=== PATIENT | male | born 1990 | race Caucasian/White ===

== ENCOUNTER 2018-01-22 17:21 | Observation (INO) | payer OTHER ==
[2018-01-22] MEDS ORDERED: Colace 100 MG PO PRN (17:47)
[2018-01-22] MEDS ORDERED: Sodium Chloride 0.9% 500 ML 500 ML IV ONE (17:47)
[2018-01-22] MEDS ORDERED: TYLENOL 325 MG PO PRN (17:58)
[2018-01-22] MEDS: LEVOFLOXACIN 750MG/150ML D5W 750 MG/150 ML BAG IV SCH (18:04)
[2018-01-22] MEDS: Dextrose 5% -0.45 NaCl 1000 ML 1,000 ML IV SCH (19:12)
[2018-01-22 19:13] LABS: INR 1.38 (0.8-3.0)
[2018-01-22 19:16] LABS: PTT 33.1 SECONDS (24.1-36.1)
[2018-01-22 20:27] LABS: Appearance CLEAR (CLEAR)
[2018-01-22 20:28] LABS: Bilirubin NEGATIVE (NEGATIVE); Blood NEGATIVE Ery/ul (0-5); Glucose NEGATIVE (NEGATIVE); Ketones NEGATIVE (NEGATIVE); Leukocyte Esterase NEGATIVE (NEGATIVE); Nitrite NEGATIVE (NEGATIVE); Protein,Urine Dip NEGATIVE (Negative); Urobilinogen 8 mg/dL (0-1)
[2018-01-22] MEDS: MOTRIN 400 MG PO PRN (21:43)
[2018-01-23 05:23] VITALS: O2SAT 96
[2018-01-23 05:26] LABS: BASOPHIL % 0.1 % (0.0-0.4); Basophil (Absolute #) 0.01 (0-0.4); Eosinophil (Absolute #) 0.23 (0-0.5); Granulocyte Absolute (ANC) 8.84 (1.4-6.9); Granulocytes % 78.1 % (36.0-66.0); Hematocrit 38.4 % (42-50); Hemoglobin 13.3 gm/dl (12.5-18.0); Lymphocyte (Absolute #) 1.03 (1.0-4.6); Lymphocytes % 9.1 % (24.0-44.0); Mean Cell Volume 83.3 fl (78-100); Mean Corpuscular Hemoglobin 28.9 pg (26-32); Mean Corpuscular Hgb Concent. 34.6 g/dl (32-36); Mean Platelet Volume 9.5 fl (6-9.5); Monocyte (Absolute #) 1.21 (0.0-1.3); Monocytes % 10.7 % (0.0-12.0); Platelet Count 175 K/mm3 (150-450); Red Blood Count 4.61 M/mm3 (4.1-5.6); Red Cell Distribution Width 13.6 % (11.5-14.0); White Blood Count 11.3 K/mm3 (4.0-10.5)
[2018-01-23 05:39] LABS: ALBUMIN 3.7 g/dL (3.5-5.0); ALKALINE PHOSPHATASE 133 U/L (38-126); ANION GAP 14.4 MEQ/L (5-15); BLOOD UREA NITROGEN 11 mg/dL (9-20); CHLORIDE 104 mmol/L (98-107); Calcium 8.8 mg/dL (8.4-10.2); Carbon Dioxide 25 mmol/L (22-30); Creatinine 1 0.85 mg/dL (0.66-1.25); Glucose 128 mg/dL (74-106); Potassium 3.9 mmol/L (3.5-5.1); SGOT/AST 64 U/L (17-59); SGPT/ALT 139 U/L (0-50); SODIUM 139 mmol/L (137-145)
[2018-01-23] MEDS: Dextrose 5% -0.45 NaCl 1000 ML 1,000 ML IV SCH (06:01)
[2018-01-23] MEDS ORDERED: Dextrose 5% -0.45 NaCl 1000 ML 1,000 ML IV ONE (06:01)
--- NOTE | 2018-01-23 08:35 | XRAY ---
Indication: Elevated bilirubin, liver enzymes, and WBC. Mid abdominal pain and fever. Multiple contiguous axial images obtained through the abdomen and pelvis using 80 cc Isovue 370 contrast. Enteric contrast also used. Comparison: None Lung bases demonstrates minimal bibasilar atelectasis/scarring and tiny left effusion. Heart is not enlarged. Contrasted stomach and bowel loops appear nonobstructed. Cecum lies left of midline with normal appearing appendix. No free fluid/air. Remaining liver, gallbladder, pancreas, spleen, adrenal glands, kidneys, ureters, bladder, and aorta appear normal in CT appearance and attenuation. No pathologic retroperitoneal lymphadenopathy. Osseous structures intact. Impression: Tiny nonspecific left effusion. Remaining CT abdomen/pelvis with contrast exam is negative. CTDI 22.97
[2018-01-23] MEDS: LEVOFLOXACIN 750MG/150ML D5W 750 MG/150 ML BAG IV SCH (09:58)
[2018-01-23] MEDS: MOTRIN 400 MG PO PRN (10:35)
[2018-01-23 11:44] VITALS: BP 125/70; PULSE 106
--- NOTE | 2018-01-23 11:59 | PCM.NOTE ---
Date and Time: 01/23/18814 Subjective Assessment: patient reports some improvement in his energy level today. no fever overnight, denies pain. feels hungry today Objective Exam General Appearance: no apparent distress, alert Eye Exam: scleral icterus Ears, Nose, Throat Exam: normal ENT inspection, pharynx normal, moist mucous membranes Neck Exam: normal inspection, non-tender, supple, full range of motion Respiratory Exam: normal breath sounds, lungs clear, No respiratory distress Cardiovascular Exam: regular rate/rhythm, normal heart sounds Gastrointestinal/Abdomen Exam: soft, No tenderness, No mass Extremity Exam: normal inspection, normal range of motion OBJECTIVE DATA Vital Signs: Vital Signs - 24 hr Temp Pulse Resp BP Pulse Ox 01/23/18 07:27 98.8 F 95 H 18 117/66 96 01/23/18 05:00 99.1 F 89 18 114/66 96 01/23/18 00:30 99.0 F 90 18 134/80 98 01/22/18 22:43 99.5 F 01/22/18 21:30 101.9 F 01/22/18 20:30 102.9 F 01/22/18 20:00 103.1 F 90 20 122/64 93 L 01/22/18 17:35 101.9 F 112 H 112 H 127/74 98 Pain Assessment - Last Documented Pain Intensity 3 Pain Scale Used 0-10 Pain Scale Intake and Output: Intake & Output 01/20/18 01/21/18 01/22/18 01/23/18 11:59 11:59 11:59 11:59 Intake Total 2560 Output Total 940 Balance 1620 Weight 99.5 kg Lab Results: Lab Results-Last 24 Hours 01/22/18 01/22/18 01/22/18 Range/Units 18:15 18:21 18:21 WBC (4.0-10.5) K/mm3 RBC (4.1-5.6) M/mm3 Hgb (12.5-18.0) gm/dl Hct (42-50) % MCV (78-100) fl MCH (26-32) pg MCHC (32-36) g/dl RDW (11.5-14.0) % Plt Count (150-450) K/mm3 MPV (6-9.5) fl Gran % (36.0-66.0) % Eos # (Auto) (0-0.5) Absolute Lymphs (auto) (1.0-4.6) Absolute Monos (auto) (0.0-1.3) Lymphocytes % (24.0-44.0) % Monocytes % (0.0-12.0) % Eosinophils % (0.00-5.0) % Basophils % (0.0-0.4) % Absolute Granulocytes (1.4-6.9) Basophils # (0-0.4) PT 16.1 H (8.83-12.87) SECONDS INR 1.38 (0.8-3.0) APTT 33.1 (24.1-36.1) SECONDS Sodium (137-145) mmol/L Potassium (3.5-5.1) mmol/L Chloride (98-107) mmol/L Carbon Dioxide (22-30) mmol/L Anion Gap (5-15) MEQ/L BUN (9-20) mg/dL Creatinine (0.66-1.25) mg/dL Estimated GFR ML/MIN Glucose (74-106) mg/dL Lactic Acid 1.0 (0.4-2.0) Calcium (8.4-10.2) mg/dL Total Bilirubin (0.2-1.3) mg/dL Direct Bilirubin 3.3 H (0.0-0.4) mg/dL AST (17-59) U/L ALT (0-50) U/L Alkaline Phosphatase (38-126) U/L Serum Total Protein (6.3-8.2) g/dL Albumin (3.5-5.0) g/dL Ur Collection Type Urine Color (YELLOW) Urine Appearance (CLEAR) Urine pH (5-6) Ur Specific [place] (1.005-1.025) Urine Protein (Negative) Urine Ketones (NEGATIVE) Urine Blood (0-5) Lance/ul Urine Nitrite (NEGATIVE) Urine Bilirubin (NEGATIVE) Urine Urobilinogen (0-1) mg/dL Ur Leukocyte Esterase (NEGATIVE) Urine Glucose (NEGATIVE) mg/dL Specimen Received 01/22/18 01/23/18 01/23/18 Range/Units 19:52 05:20 05:20 WBC 11.3 H (4.0-10.5) K/mm3 RBC 4.61 (4.1-5.6) M/mm3 Hgb 13.3 (12.5-18.0) gm/dl Hct 38.4 L (42-50) % MCV 83.3 (78-100) fl MCH 28.9 (26-32) pg MCHC 34.6 (32-36) g/dl RDW 13.6 (11.5-14.0) % Plt Count 175 (150-450) K/mm3 MPV 9.5 (6-9.5) fl Gran % 78.1 H (36.0-66.0) % Eos # (Auto) 0.23 (0-0.5) Absolute Lymphs (auto) 1.03 (1.0-4.6) Absolute Monos (auto) 1.21 (0.0-1.3) Lymphocytes % 9.1 L (24.0-44.0) % Monocytes % 10.7 (0.0-12.0) % Eosinophils % 2.0 (0.00-5.0) % Basophils % 0.1 (0.0-0.4) % Absolute Granulocytes 8.84 H (1.4-6.9) Basophils # 0.01 (0-0.4) PT (8.83-12.87) SECONDS INR (0.8-3.0) APTT (24.1-36.1) SECONDS Sodium 139 (137-145) mmol/L Potassium 3.9 (3.5-5.1) mmol/L Chloride 104 (98-107) mmol/L Carbon Dioxide 25 (22-30) mmol/L Anion Gap 14.4 (5-15) MEQ/L BUN 11 (9-20) mg/dL Creatinine 0.85 (0.66-1.25) mg/dL Estimated GFR > 60.0 ML/MIN Glucose 128 H (74-106) mg/dL Lactic Acid (0.4-2.0) Calcium 8.8 (8.4-10.2) mg/dL Total Bilirubin 9.40 H (0.2-1.3) mg/dL Direct Bilirubin (0.0-0.4) mg/dL AST 64 H (17-59) U/L ALT 139 H (0-50) U/L Alkaline Phosphatase 133 H (38-126) U/L Serum Total Protein 7.0 (6.3-8.2) g/dL Albumin 3.7 (3.5-5.0) g/dL Ur Collection Type VOID Urine Color DARK YELLOW (YELLOW) Urine Appearance CLEAR (CLEAR) Urine pH 8.0 (5-6) Ur Specific [place] 1.000 (1.005-1.025) Urine Protein NEGATIVE (Negative) Urine Ketones NEGATIVE (NEGATIVE) Urine Blood NEGATIVE (0-5) Lance/ul Urine Nitrite NEGATIVE (NEGATIVE) Urine Bilirubin NEGATIVE (NEGATIVE) Urine Urobilinogen 8 (0-1) mg/dL Ur Leukocyte Esterase NEGATIVE (NEGATIVE) Urine Glucose NEGATIVE (NEGATIVE) mg/dL Specimen Received 01/22/182026 Radiology Exams: Radiology Procedures Category Date Time Status ABDOMEN AND PELVIS W CONTRAST [CT] Routine Exams 01/22/18 17:47 Taken Assessment/Plan (1) Fever Current Visit: Yes Status: Acute Assessment & Plan: hepatitis a,b,c testing are pending. certainly sounds like an acute viral illness. will add EBV and CMV testing. Code(s): R50.9 - FEVER, UNSPECIFIED (2) Jaundice Current Visit: Yes Status: Acute Assessment & Plan: stable, mostly unconjugated with direct bili 3.3, pattern of elevation of LFT's and bilirubin levels concern for acute hepatocellular process. CT abd/pel is negative Code(s): R17 - UNSPECIFIED JAUNDICE (3) Elevated liver function tests Current Visit: Yes Status: Acute Code(s): R79.89 - OTHER SPECIFIED ABNORMAL FINDINGS OF BLOOD CHEMISTRY
[2018-01-24 19:00] LABS: RETICULOCYTE COUNT 0.96 % (0.36-2.02)
[2018-01-25 02:03] LABS: Hepatitis C Antibody by EIA Non Reactive (Non Reactive)
== END 2018-01-23 13:50 | disposition short-term general hospital (02) ==
LOC: MED SURG 17:21
PROVIDERS: ADMIT Family Medicine; ATTEND Family Medicine
DX: R50.9 Fever, unspecified (principal); R17 Unspecified jaundice; R79.89 Other specified abnormal findings of blood chemistry; E80.7 Disorder of bilirubin metabolism, unspecified
CPT/HCPCS: 36415; 74177; 80053; 81002; 82248; 83605; 85025; 85045; 85610; 85730; 86308; 86317; 86708; 86803; 87040; 87086; 87340; 87496; G0378; J1956; A9270-GY